=== PATIENT | female | born 1970 | race African-American/Black ===

== ENCOUNTER → 2016-08-01 | Outpatient (CLI) | payer BC ==
--- NOTE | 2016-08-01 19:20 | US ---
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 GLAND SIZE: Right Lobe: 5.0 x 1.3 x 1.3 cm Overall Parenchyma: homogenous Left Lobe: 4.7 x 1.2 x 1.4 cm Overall Parenchyma: homogeneous Isthmus Thickness: 0.3 cm NODULES RIGHT: # of nodules measured on right: 0 LEFT: # of nodules measured on left: 0 ISTHMUS: # of nodules measured in the isthmus: 0 Bilateral neck scanned, no evidence of lymphadenopathy. IMPRESSION: Normal thyroid sonogram. No discrete abnormality.
== END | disposition home or self-care (01) ==
LOC: RADUSMAIN 17:32
PROVIDERS: ATTEND Family Medicine
DX: E04.9 Nontoxic goiter, unspecified (principal)
CPT/HCPCS: 76536

== ENCOUNTER → 2016-10-01 | Outpatient (CLI) | payer BC ==
--- NOTE | 2016-10-11 10:22 | MM ---
Reason for exam: screening (asymptomatic). Last mammogram was performed 6 years and 7 months ago. Physical Findings: A clinical breast exam by your physician is recommended on an annual basis and results should be correlated with mammographic findings. MG Screening Mammo w CAD Bilateral CC and MLO view(s) were taken. Prior study comparison: June 01, 2015, mammogram. The breast tissue is heterogeneously dense. This may lower the sensitivity of mammography. Nodular asymmetry far posterior and medial left breast not seen in 2016. It appears to have been present in 2010, 6 month follow up is recommended. ASSESSMENT: Probably benign, BI-RAD 3 RECOMMENDATION: Follow-up diagnostic mammogram of the left breast in 6 months.
== END | disposition home or self-care (01) ==
LOC: RADMAMWWP 16:40
PROVIDERS: ATTEND Family Medicine
DX: Z12.31 Encounter for screening mammogram for malignant neoplasm of breast (principal)

== ENCOUNTER → 2018-03-27 | Outpatient (CLI) | payer BC ==
--- NOTE | 2018-03-29 13:50 | MM ---
Reason for exam: screening (asymptomatic). Last mammogram was performed 1 year and 6 months ago. MG 3D Screening Mammo W/Cad Bilateral CC and MLO view(s) were taken. Prior study comparison: October 01, 2016, mammogram. October 01, 2016, mammogram. There is a stable equal architectural distortion in the left breast upper middle position. No significant changes when compared with prior studies. ASSESSMENT: Benign, BI-RAD 2 RECOMMENDATION: Routine screening mammogram of both breasts in 1 year.
== END | disposition home or self-care (01) ==
LOC: RADMAMWWP 15:17
PROVIDERS: ATTEND Internal Medicine
DX: Z12.31 Encounter for screening mammogram for malignant neoplasm of breast (principal)
CPT/HCPCS: 77063; 77067

== ENCOUNTER → 2019-11-02 | Outpatient (CLI) | payer OTHER ==
--- NOTE | 2019-11-03 11:31 | MM ---
Reason for exam: screening (asymptomatic). Last mammogram was performed 1 year and 7 months ago. Physical Findings: A clinical breast exam by your physician is recommended on an annual basis and results should be correlated with mammographic findings. MG 3D Screening Mammo W/Cad Bilateral CC and MLO view(s) were taken. Prior study comparison: March 27, 2018, bilateral MG 3d screening mammo w/cad. October 01, 2016, mammogram. The breast tissue is heterogeneously dense. This may lower the sensitivity of mammography. There are benign appearing vascular calcifications in the right breast. There is no discrete abnormality. ASSESSMENT: Benign, BI-RAD 2 RECOMMENDATION: Routine screening mammogram of both breasts in 1 year.
== END | disposition home or self-care (01) ==
LOC: RADMAMWWP 15:56
PROVIDERS: ATTEND Internal Medicine
DX: Z12.31 Encounter for screening mammogram for malignant neoplasm of breast (principal)
CPT/HCPCS: 77063; 77067

== ENCOUNTER → 2022-05-29 | Outpatient (CLI) | payer OTHER ==
--- NOTE | 2022-05-30 10:19 | MM ---
Reason for Exam: Screening (asymptomatic). Last mammogram was performed 2 year(s) and 7 month(s) ago. Patient History: Menarche at age 13. First Full-Term at age 14. Risk Values: Melia 5 year model risk: 0.7%. NCI Lifetime model risk: 5.7%. Prior Study Comparison: 10/01/2016 Bilateral Screening Mammogram, [facility]. 03/27/2018 Bilateral Screening Mammogram, [facility]. 11/02/2019 Bilateral Screening Mammogram, [facility]. Tissue Density: The breast tissue is heterogeneously dense. This may lower the sensitivity of mammography. Findings: Analyzed By CAD. Benign-appearing vascular calcification in the right breast is redemonstrated. There is no suspicious new group of microcalcifications or new suspicious mass in either breast. Overall Assessment: Benign, BI-RAD 2 Management: Screening Mammogram of both breasts in 1 year. A clinical breast exam by your physician is recommended on an annual basis and results should be correlated with mammographic findings. Electronically signed and approved by: Markell Ponce M.D.
== END | disposition home or self-care (01) ==
LOC: RADMAMWWP 14:14
PROVIDERS: ATTEND Internal Medicine Geriatric Medicine
DX: Z12.31 Encounter for screening mammogram for malignant neoplasm of breast (principal)
CPT/HCPCS: 77063; 77067

== ENCOUNTER → 2022-08-08 | Outpatient (CLI) | payer OTHER ==
--- NOTE | 2022-08-08 15:22 | US ---
EXAMINATION TYPE: US transvaginal DATE OF EXAM: 08/08/2022 COMPARISON: NONE CLINICAL INDICATION: Female, 52 years old with history of R19.00 pelvic swelling with mass; Enlarged uterus felt by physician at office during pelvic exam TECHNIQUE: Transvaginal only per patient's order Date of LMP: Beginning of July 2022 EXAM MEASUREMENTS: Uterus: 12.3 x 8.4 x 9.0 cm Endometrial Stripe: 0.9 cm Right Ovary: not seen Left Ovary: not seen 1. Uterus: anteverted, enlarged with multiple hypoechoic areas largest measuring 5.9 x 5.7 x 6.9cm a nd located centrally in the uterus likely with mass effect onto the endometrial stripe. Multiple nabo thian cysts in cervix measuring up to 1.1 cm. 2. Endometrium: appears wnl 3. Right Ovary: not seen 4. Left Ovary: not seen 5. Bilateral Adnexa: wnl 6. Posterior cul-de-sac: wnl IMPRESSION: 1. Fibroid uterus. Largest appears centrally located measuring 6.9 cm and likely has some submucosal component. 2. Unable to visualize either ovary on this exam.
== END | disposition home or self-care (01) ==
LOC: RADUSWWP 08:27
PROVIDERS: ATTEND Family Medicine
DX: D25.9 Leiomyoma of uterus, unspecified (principal); R19.09 Other intra-abdominal and pelvic swelling, mass and lump
CPT/HCPCS: 76830

== ENCOUNTER → 2023-06-14 | Outpatient (CLI) | payer OTHER ==
--- NOTE | 2023-06-15 08:21 | US ---
EXAMINATION TYPE: US thyroid st tissue head/neck DATE OF EXAM: 06/14/2023 COMPARISON: 08/01/2016 CLINICAL INDICATION: Female, 52 years old with history of E04.1 Nontoxic single thyroid nodule; Patie nt states that her doctor felt that her thyroid was enlarged. NO other pain or symptoms. GLAND SIZE: Right Lobe: 5.6 x 1.1 x 2.0 cm Overall Parenchyma: homogeneous Left Lobe: 5.4 x 1.5 x 1.9 cm Overall Parenchyma: homogeneous Isthmus Thickness: 0.3 cm NODULES RIGHT: # of nodules measured on right: 0 LEFT: # of nodules measured on left: 2 1. 1.6 X 0.9 x 1.4 cm, lower medial, solid or almost completely solid, hypoechoic nodule, which is wider than tall, with smooth margins, without echogenic foci. 2. small subcentimeter cystic area measuring 0.5 x 0.3cm ISTHMUS: # of nodules measured in the isthmus: 0 Bilateral neck scanned, there are multiple lymph nodes seen on the left side, largest measuring 2.0 c m with a 0.6cm cortex. None seen on right neck. IMPRESSION: Moderately Suspicious: FNA if ? 1.5 cm; Follow if ? 1 cm at 1, 2, 3, and 5 y 2017 ACR TI-RADS LEVEL: TR4 *Highest TI-RADS level nodule reported
== END | disposition home or self-care (01) ==
LOC: RADUSWWP 07:40
PROVIDERS: ATTEND Family Medicine
DX: E04.1 Nontoxic single thyroid nodule (principal)
CPT/HCPCS: 76536

== ENCOUNTER → 2023-06-14 | Outpatient (CLI) | payer OTHER ==
[2023-06-14 15:55] LABS: HCT 40.8 % (37.2-46.3); HGB 14.6 g/dL (12.0-15.0); MCH 29.5 pg (27.0-32.0); MCHC 35.8 g/dL (32.0-37.0); MCV 82.4 FL (80.0-97.0); Mean Platelet Volume 10.9 FL (9.5-12.2); NRBC Per 100 WBC 0 X 10*3/uL (0.00-0.01); Platelet Count 182 X 10*3/uL (140-440); RBC 4.95 X 10*6/uL (4.10-5.20); RDW 11.9 % (11.5-14.5)
[2023-06-14 15:56] LABS: Basophils # (A) 0.03 X 10*3/uL (0.00-0.10); Basophils % (A) 0.6 %; Eosinophils # (A) 0.14 X 10*3/uL (0.04-0.35); Eosinophils % (A) 2.9 %; Lymphocytes # (A) 1.45 X 10*3/uL (0.90-5.00); Lymphocytes % (A) 30.2 %; Monocytes # (A) 0.49 X 10*3/uL (0.20-1.00); Monocytes % (A) 10.2 %; Neutrophils # (A) 2.68 X 10*3/uL (1.80-7.70); Neutrophils % (A) 55.9 %
[2023-06-14 16:19] LABS: ALT 9 U/L (8-44); AST 15 U/L (13-35); Albumin/Globulin Ratio 1.29 Ratio (1.60-3.17); Alkaline Phosphatase 81 U/L (41-126); Blood Urea Nitrogen 7.2 mg/dL (9.0-27.0); Calcium 9.5 mg/dL (8.7-10.3); Carbon Dioxide 24.8 mmol/L (21.6-31.8); Chloride 107 mmol/L (96-109); Chol/HDL Ratio 5.43 Ratio; Globulin 3.1 g/dL (1.6-3.3); Glucose 75 mg/dL (70-110); LDL Cholesterol,Calculated 124.9 mg/dL (0.0-131.0); Potassium 3.7 mmol/L (3.5-5.5); Sodium 141 mmol/L (135-145); Total Bilirubin 0.8 mg/dL (0.3-1.2); Total Protein 7.1 g/dL (6.2-8.2)
--- NOTE | 2023-06-17 12:24 | MM ---
Reason for Exam: Screening (asymptomatic). Last mammogram was performed 1 year(s) and 1 month(s) ago. Patient History: Menarche at age 13. First Full-Term at age 14. Perimenopausal. Risk Values: Melia 5 year model risk: 1.0%. NCI Lifetime model risk: 6.2%. Prior Study Comparison: 03/27/2018 Bilateral Screening Mammogram, [facility]. 11/02/2019 Bilateral Screening Mammogram, [facility]. 05/29/2022 Bilateral MG 3D screening mammo w/cad, [facility]. Tissue Density: The breasts are heterogeneously dense, which may obscure small masses. Findings: Analyzed By CAD. There is no suspicious group of microcalcifications or new suspicious mass in either breast. Overall Assessment: Benign, BI-RAD 2 Management: Screening Mammogram of both breasts in 1 year. . Patient should continue monthly self-breast exams. A clinical breast exam by your physician is recommended on an annual basis. This exam should not preclude additional follow-up of suspicious palpable abnormalities. Note on Melia scores and lifetime risk: 1. A Melia score greater than 3% is considered moderate risk. If this is the case, consider specialist referral to assess eligibility for a risk reducing agent. 2. If overall lifetime risk for the development of breast cancer is 20% or higher, the patient may qualify for future screening with alternating mammogram and breast MRI. Electronically signed and approved by: Van Lainez M.D. Radiologis
== END | disposition home or self-care (01) ==
LOC: RADMAMWWP 07:44
PROVIDERS: ATTEND Family Medicine
DX: Z12.31 Encounter for screening mammogram for malignant neoplasm of breast (principal); R73.9 Hyperglycemia, unspecified; J20.9 Acute bronchitis, unspecified; E78.5 Hyperlipidemia, unspecified; D51.9 Vitamin B12 deficiency anemia, unspecified; E55.9 Vitamin D deficiency, unspecified
CPT/HCPCS: 77063; 77067; 80053; 80061; 82306; 82607; 83036; 84443; 85025

== ENCOUNTER → 2023-07-22 | Outpatient (CLI) | payer OTHER ==
--- NOTE | 2023-07-22 13:52 | CT ---
EXAMINATION TYPE: CT soft tissue neck w con DATE OF EXAM: 07/22/2023 COMPARISON: Ultrasound dated 06/14/2023 HISTORY: enlarged lymph nodes found on US CT DLP: 653 mGycm CONTRAST: CT scan of the neck is performed with IV Contrast, patient injected with 100 mL of Isovue 300. Contrast enhanced CT of the neck was performed from the skull base through the lung apices. AIRWAY: The supraglottic, glottic, and subglottic portions of the airway appear patent and free of mass. SALIVARY GLANDS: The submandibular and parotid glands are free of mass or inflammatory process. THYROID GLAND: 1.3 cm left-sided thyroid nodule posterior mid lobe. There is also a nodule in the reg ion of the left isthmus measuring 7 mm. LYMPH NODES: There are a few scattered subcentimeter lymph nodes seen bilaterally. No adenopathy grea ter than 1 cm at this time. Findings seen at ultrasound may have been related to reactive adenopathy with interval improvement. LUNG APICES: No nodule or mass is seen. OTHER: Vascular structures are patent. No significant degenerative change of the cervical spine. N o abscess seen. IMPRESSION: 1.There are a few scattered subcentimeter lymph nodes seen bilaterally. No adenopathy greater than 1 cm at this time. Findings seen at ultrasound may have been related to reactive adenopathy with interv al improvement. 2. Nonspecific thyroid nodularity.
== END | disposition home or self-care (01) ==
LOC: RADCTMAIN 13:13
PROVIDERS: ATTEND Otolaryngology
DX: E04.1 Nontoxic single thyroid nodule (principal); R59.0 Localized enlarged lymph nodes
CPT/HCPCS: 70491; Q9967

== ENCOUNTER 2023-07-25 11:36 | Day surgery (SDC) | payer OTHER ==
[2023-07-25 14:09] VITALS: RESP 16; TEMP 98.2
--- NOTE | 2023-07-25 14:12 | US ---
EXAMINATION TYPE: US FNA thyroid first lesion DATE OF EXAM: 07/25/2023 2:07 PM CLINICAL INDICATION:Female, 52 years old with history of E04.1 NONTOXIC SINGLE THYROID NODULE; , thyr oid nodule. COMPARISON: 06/14/2023 ATTENDING: Dr. Rasheed Junior PROCEDURE: Informed consent was obtained. The risks and benefits of the procedure were discussed with the patien t. The site was marked. Timeout procedure was performed Ultrasound imaging of the thyroid demonstrates left medial/isthmus nodule. The patient was prepped, draped in the usual sterile fashion, and locally anesthetized with 1% lidoca ine. Five fine needle aspiration were then performed with a 25 gauge needle. Samples were sent to [facility] pathology department for further analysis. Patient tolerated the procedure without incident and wa s sent home in stable condition. IMPRESSION: Successful ultrasound guided fine needle aspiration.
[2023-07-25 16:04] VITALS: BP 133/73; PULSE 76
== END 2023-07-25 14:36 | disposition home or self-care (01) ==
LOC: RADPROMAIN 11:36
PROVIDERS: ATTEND Otolaryngology
DX: E04.1 Nontoxic single thyroid nodule (principal)
CPT/HCPCS: 10005; 88173; 88305

== ENCOUNTER → 2024-04-07 | Outpatient (CLI) | payer OTHER ==
--- NOTE | 2024-04-07 15:23 | US ---
EXAMINATION TYPE: US thyroid st tissue head/neck DATE OF EXAM: 04/07/2024 COMPARISON: 06/14/2023 CLINICAL INDICATION: Female, 53 years old with history of E04.1 Thyroid nodule; F/U TECHNIQUE: Grayscale and color Doppler imaging of the thyroid gland. FINDINGS: GLAND SIZE: Right Lobe: 5.6 x 1.7 x 1.8 cm Overall Parenchyma: homogeneous Left Lobe: 5.2 x 1.6 x 1.7 cm Overall Parenchyma: homogeneous Isthmus Thickness: 0.3 cm NODULES RIGHT: # of nodules measured on right: 0 LEFT: # of nodules measured on left: 1 1. 1.4 X 0.9 x 1.4 cm, lower medial, solid or almost completely solid, hypoechoic nodule, which is wider than tall, with smooth margins, without echogenic foci. Prior size: 1.5 x 0.9 x 1.4 cm ISTHMUS: # of nodules measured in the isthmus: 0 Drug Coordinator notes: Bilateral neck scanned, no evidence of lymphadenopathy. Stable nodule left lobe. IMPRESSION: 1. Mild thyromegaly. 2. A 1.4 cm TR4 nodule at the left lower pole, previously measured 1.5 cm. 2017 ACR TI-RADS LEVEL: TR-RADS 4 - Moderately Suspicious: Follow if > 1 cm, FNA if > 1.5 cm *Highest TI-RADS level nodule reported [facility], Workstation: [id number], 04/07/2024 3:21 PM
== END | disposition home or self-care (01) ==
LOC: RADUSWWP 14:42
PROVIDERS: ATTEND Family Medicine
DX: E04.1 Nontoxic single thyroid nodule (principal)
CPT/HCPCS: 76536

== ENCOUNTER → 2024-05-21 | Outpatient (CLI) | payer OTHER ==
--- NOTE | 2024-06-01 12:15 | EM ---
EVENT MONITOR STUDY: A 7-day event monitor. INDICATION: Palpitations. Underlying rhythm is sinus with an average heart rate of 68 beats per minute. Slowest heart rate was 48 beats per minute. Fastest heart rate was 120 beats per minute. There was sinus bradycardia and sinus tachycardia noted. Even though this was supposed to be a 7-day monitor, a total of 6 days worth of monitoring was done. CONCLUSIONS: Sinus rhythm with sinus bradycardia and sinus tachycardia. PVC burden is 1%. PAC burden is 1%. MMODL / IJN: [id number] /
== END | disposition home or self-care (01) ==
LOC: RADECHMAIN 13:53
PROVIDERS: ATTEND Family Medicine
DX: I49.3 Ventricular premature depolarization (principal); R00.2 Palpitations; R00.0 Tachycardia, unspecified
CPT/HCPCS: 93270

== ENCOUNTER → 2024-06-30 | Outpatient (CLI) | payer OTHER ==
--- NOTE | 2024-06-30 13:34 | MM ---
Reason for Exam: Screening (asymptomatic). Last screening mammogram was performed 12 month(s) ago. Patient History: Menarche at age 13. First Full-Term at age 14. Perimenopausal. Risk Values: Melia 5 year model risk: 1.1%. NCI Lifetime model risk: 6.1%. Prior Study Comparison: 11/02/2019 Bilateral Screening Mammogram, [facility]. 05/29/2022 Bilateral MG 3D screening mammo w/cad, [facility]. 06/14/2023 Bilateral MG 3D screening mammo w/cad, [facility]. Tissue Density: There are scattered areas of fibroglandular density. Findings: Analyzed By CAD. There is no suspicious group of microcalcifications or new suspicious mass in either breast. Overall Assessment: Negative, BI-RAD 1 Management: Screening Mammogram of both breasts in 1 year. . Patient should continue monthly self-breast exams. A clinical breast exam by your physician is recommended on an annual basis. This exam should not preclude additional follow-up of suspicious palpable abnormalities. Note on Melia scores and lifetime risk: 1. A Melia score greater than 3% is considered moderate risk. If this is the case, consider specialist referral to assess eligibility for a risk reducing agent. 2. If overall lifetime risk for the development of breast cancer is 20% or higher, the patient may qualify for future screening with alternating mammogram and breast MRI. [facility], , 06/30/2024 1:31 PM. Electronically signed and approved by: Van Lainez M.D. Radiologis
== END | disposition home or self-care (01) ==
LOC: RADMAMWWP 12:38
PROVIDERS: ATTEND Family Medicine
DX: Z12.31 Encounter for screening mammogram for malignant neoplasm of breast (principal); R92.323 Mammographic fibroglandular density, bilateral breasts
CPT/HCPCS: 77063; 77067

== ENCOUNTER → 2024-07-01 | Outpatient (CLI) | payer OTHER ==
--- NOTE | 2024-07-01 13:43 | CA ---
Stress Echo Report Sindy Bautista Age: 53 Gender: F : 1970 Exam Date: 07/01/2024 12:55 Exam Location: [place] [facility] Ht (in): 67 Wt (lb): 184 Ordering Physician: Marti Springer MD Referring Physician: Marti Springer MD [employer]: [employer] Technologist Procedure CPT: Indication: R07.9 CHEST PAIN, UNSPECIFIED ICD-9 Codes: Rhythm: Patient History: Palpitations with lt arm tingling. Cardiac Medications: Medications in past 24 hours: Contrast: Stress Results Protocol: Goyo Total dose(mL): Exercise Duration (min:sec): 9:[address] Depression (mm): Angina Score: Roger Score: METS: 10.9 Resting HR: 56 Resting BP: 128 / 87 Peak HR: 156 Peak BP: 203 / 95 Max Predicted HR: 165 95 % Max Predicted HR Target HR: 140 Double Product: 54101 Stress Summary: The patient's target heart rate was achieved BP Response: Reason for Termination: Max exertion Cardiac Symptoms: No symptoms ECG Analysis Resting ECG: Normal sinus rhythm, normal ECG Stress ECG: No abnormal ST/T wave changes with exercise Arrhythmia: Occasional PVCs Echo Analysis Resting Echo: Normal resting echocardiogram. Peak Echo Analysis: Normal wall thickening and motion MEASUREMENTS (Male/Female) Normal Values CONCLUSIONS 1. Good exercise tolerance with normal electrocardiographic response to exercise with occasional PVCs 2. Normal stress echocardiogram with no evidence of stress- induced ischemia Dr. Pari Pastrana MD (Electronically Signed) Final Date: 01 July 2024 13:42
== END | disposition home or self-care (01) ==
LOC: RADECHMAIN 12:15
PROVIDERS: ATTEND Family Medicine
DX: R07.9 Chest pain, unspecified (principal); R20.2 Paresthesia of skin
CPT/HCPCS: 93351